=== PATIENT | female | born 1995 | race Caucasian/White ===

== ENCOUNTER → 2017-08-02 | Day surgery (SDC) | payer OTHER ==
[~2017-08-02] MED LIST: ADVIL200 M1 PO; MOBIC15 MG PO
--- NOTE | ~2017-08-02 | OR ---
Unit #: [id number] #: [id number] Patient: PARMJIT GUERRA [id number] [address] [place], [place] [address] [id number] MR#: [id number] NAME: PARMJIT GUERRA ROOM: Date of Procedure: 08/02/2017 Admission Date: 08/02/2017 Surgeon: Samuel Villar M.D. : 1995 Attending Physician: Cipriano Villar Primary Care Physician: Ladonna Davis M.D. [facility] OPERATIVE NOTE PROCEDURE PERFORMED Lumbar epidural steroid injection under x-ray guided needle placement with provider administered conscious sedation. PREOPERATIVE DIAGNOSES 1. Acute lumbar radiculitis. 2. Herniated disk, L4-L5. 3. Degenerative joint disease, lumbosacral spine. 4. Degenerative disk disease, lumbosacral spine. INDICATIONS FOR PROCEDURE The patient presents today with approximately 2 to 4 week long history of acute radicular back pains, which she states she sustained a weightlifting injury. She states she had some mild initial improvement with physical therapy and nonsteroidal anti-inflammatories; however, the pain has returned and is now advancing in a crescendo pattern to the point that it is interfering with her activities of daily living. After discussing risks and benefits of proceeding today with lumbar approach epidural steroid injection, the patient agreed this would be the appropriate course of action. We chose the L4-L5 level, which is consistent with her x-ray studies which show L4-l5 and L5-S1 disease. DESCRIPTION OF PROCEDURE Following this discussion, the patient was taken to the operating room, where she was prepped and draped in a sterile manner and the lumbar epidural space was accessed at the L4-L5 level using loss of resistance technique and x-ray guidance. The patient initially did not request sedation; however, she did receive 2 mg of IV Versed throughout the duration of the procedure. Following successful needle placement confirmation at the L4-L5 level, the patient had needle placement confirmed with injection of 2 mL of Omnipaque. Approximately 80% to 90% dye flow was in the superior direction. Following successful needle placement confirmation which required a time of 5 seconds, the patient received an injectate containing 2 mL normal saline, 2 mL of 0.25% bupivacaine, and 80 mg of methylprednisolone. She tolerated this procedure well. She was discharged home with followup instructions, which include return to this clinic in 2 weeks, at which point she will most likely have an L5-S1 with the potential for dual needle dependent upon dye flow. Dictated by... Samuel Villar M.D. Unit #: [id number] #: [id number] Patient: PARMJIT GUERRA RIC/abdulaziz TD: 08/02/2017 11:38 JOB #: [id number] [facility] OPERATIVE NOTE Page 1 of 1 X Cipriano Villar MD X PROCEDURE OPERATIVE NOTE
== END | disposition home or self-care (01) ==
LOC: CCSC 10:00
DX: G89.29 Other chronic pain (principal); M51.17 Intervertebral disc disorders with radiculopathy, lumbosacral region; M51.16 Intervertebral disc disorders with radiculopathy, lumbar region; M47.27 Other spondylosis with radiculopathy, lumbosacral region; Z79.1 Long term (current) use of non-steroidal anti-inflammatories (NSAID); Z98.818 Other dental procedure status
CPT/HCPCS: J1040; J2250